=== PATIENT | male | born 1990 | race Two or more races ===

== ENCOUNTER 2019-12-29 07:14 | Day surgery (SDC) | payer MEDICAID ==
[2019-12-29] MEDS ORDERED: Dextrose 5%-Lactated Ringers 1,000 ML IV SCH (07:45)
[2019-12-29] MEDS ORDERED: Glycopyrrolate 0.2 MG/ML 2 ML SDV IVPUSH ONE (09:00)
[2019-12-29] MEDS ORDERED: Propofol 200 MG/20 ML SDV ONE (09:40)
[2019-12-29] MEDS ORDERED: Midazolam 1 MG/ML 2 ML SDV ONE (09:40)
[2019-12-29] MEDS ORDERED: fentaNYL 100 MCG/2 ML SDV ONE (09:40)
[2019-12-29 12:31] VITALS: BP 121/74; PULSE 62
--- NOTE | 2020-01-08 14:04 | OR ---
DATE OF PROCEDURE: 12/29/2019 SURGEON: Buster Ramirez MD PREOPERATIVE DIAGNOSIS: Gastroesophageal reflux disease. POSTOPERATIVE DIAGNOSES: Moderate-sized hiatal hernia with ulcerated gastroesophageal reflux disease. OPERATIVE PROCEDURE: Esophagogastroduodenoscopy with: 1. Biopsy of esophagogastric junction for histologic evaluation. 2. Biopsies of antrum for CLOtest. ANESTHESIA: IV sedation. INDICATIONS FOR PROCEDURE: This is a 29-year-old male who has been on proton pump inhibitors, and despite that, is having quite a bit in the way of epigastric and substernal pain. The plan is to proceed with an upper GI endoscopy with biopsies as indicated. Potential risks including bleeding and perforation were discussed, and the patient wishes to proceed. DETAILS OF PROCEDURE: The patient was taken to the operating room and placed in a left lateral decubitus position. IV sedation was administered after which the upper GI endoscope was passed orally through the length of the esophagus into the stomach with retroflexion view of the fundus, and thereafter, through the pyloric channel and into the proximal duodenum. Findings included normal hypopharynx, larynx, and upper esophageal sphincter. The scope was then passed through the esophageal body. The patient was noted to have some old blood present. The patient was noted to have a moderate-sized hiatal hernia measuring around 2 cm to 3 cm and actively ulcerated gastroesophageal reflux disease with some both old and fresh blood present. There was no stricturing or gross evidence of neoplastic change. The remainder of the gastric and duodenal exam was unremarkable. At this point, biopsies were obtained from the antrum to establish the patient's H. pylori status, and then multiple biopsies obtained from the esophagogastric junction. Minimal additional bleeding was noted from the biopsy sites. The procedure was then concluded. Postprocedure, we had an extensive discussion with the patient and his regarding management options. The patient has some shortness of breath intermittently, and this may be contributed to by the gastroesophageal reflux disease as well as obvious lack of adequate control with medical management. Particularly, at his young age, he would also like to possibly get off these medications long-term. The patient does not express any symptoms of dysphagia referable to distal esophagus, and the question of the reflux disease at this point clearly is not of any uncertainty, and given this, the plan will be to proceed with Michelle fundoplication this coming Wednesday. Potential risks including bleeding, infection, injury to underlying viscera, and problems with short-term or persistent dysphagia occasionally requiring revisions of the fundoplication as well as possible incomplete relief of symptoms were all reviewed, and the patient wishes to proceed. Surgery will be scheduled this coming Wednesday. Buster Ramirez MD /[id number]
== END 2019-12-29 12:45 | disposition home or self-care (01) ==
LOC: JP.SDS 07:14
PROVIDERS: ATTEND Surgery
DX: K29.50 Unspecified chronic gastritis without bleeding (principal); K21.9 Gastro-esophageal reflux disease without esophagitis; K44.9 Diaphragmatic hernia without obstruction or gangrene; B96.81 Helicobacter pylori [H. pylori] as the cause of diseases classified elsewhere; K25.9 Gastric ulcer, unspecified as acute or chronic, without hemorrhage or perforation; E66.9 Obesity, unspecified; J45.909 Unspecified asthma, uncomplicated; Z11.59 Encounter for screening for other viral diseases; Z68.30 Body mass index [BMI] 30.0-30.9, adult
CPT/HCPCS: 36415; 43239; 80053; 83735; 84100; 85027; 87081; 87635; 88305; 88342; J2250; J2704; J3010; J3490; J7121; U0002

== ENCOUNTER 2020-01-01 05:52 | Day surgery (SDC) | payer MEDICAID ==
[2020-01-01] MEDS ORDERED: Celecoxib 200 MG Cap PO ONE (06:00)
[2020-01-01] MEDS ORDERED: Acetaminophen 500 MG Tab PO ONE (06:00)
[2020-01-01] MEDS ORDERED: Scopolamine 1.5 MG Transdermal Patch TRDERM SCH (06:00)
[2020-01-01] MEDS ORDERED: Dextrose 5%-Lactated Ringers 1,000 ML IV SCH (06:30)
[2020-01-01] MEDS ORDERED: Albuterol/Ipratropium 3.0-0.5 MG/3 ML Neb Soln NEB ONE (07:00)
[2020-01-01] MEDS ORDERED: fentaNYL 250 MCG/5 ML SDV ONE ×2 (07:14→07:40)
[2020-01-01] MEDS ORDERED: ceFAZolin 2 GM in Premix Bag 1 BAG IV ONE (07:30)
[2020-01-01] MEDS ORDERED: Rocuronium 50 MG/5 ML Vial ONE (07:44)
[2020-01-01] MEDS ORDERED: Propofol 200 MG/20 ML SDV ONE (07:44)
[2020-01-01] MEDS ORDERED: Succinylcholine 200 MG/10 ML MDV ONE (07:44)
[2020-01-01] MEDS ORDERED: Ondansetron 4 MG/2 ML SDV ONE (07:44)
[2020-01-01] MEDS ORDERED: Neostigmine Methylsulfate 1 MG/ML 5 ML Syringe ONE (07:44)
[2020-01-01] MEDS ORDERED: Dexamethasone 4 MG/ML SDV ONE (07:44)
[2020-01-01] MEDS ORDERED: Glycopyrrolate 0.2 MG/ML 5 ML MDV ONE (07:44)
[2020-01-01] MEDS ORDERED: Ketamine 50 MG in Sodium Chloride 0.9% 49.5 ML IV SCH (07:45)
[2020-01-01] MEDS ORDERED: Ketamine 500 MG/5 ML MDV IV SCH (07:45)
[2020-01-01] MEDS ORDERED: fentaNYL 100 MCG/2 ML SDV ONE (08:28)
[2020-01-01] MEDS ORDERED: HYDROmorphone 1 MG/ML Syringe IV PRN (10:22)
[2020-01-01] MEDS ORDERED: Ondansetron 4 MG/2 ML SDV IVPUSH PRN (10:22)
[2020-01-01] MEDS ORDERED: Albuterol/Ipratropium 3.0-0.5 MG/3 ML Neb Soln INH PRN (10:23)
[2020-01-01] MEDS: Dextrose 5%-Lactated Ringers 1,000 ML IV SCH ×3 (10:45→22:42)
[2020-01-01] MEDS: HYDROmorphone 0.5 MG/0.5 ML Syringe IVPUSH PRN ×3 (10:46→22:41)
[2020-01-01] MEDS: Albuterol/Ipratropium 3.0-0.5 MG/3 ML Neb Soln INH SCH ×3 (10:56→21:46)
[2020-01-01] MEDS ORDERED: Pantoprazole 40 MG Vial IV SCH (12:00)
[2020-01-01] MEDS: VERIFY SCOP PATCH TOP SCH (12:56)
[2020-01-01] MEDS: Acetaminophen 500 MG Tab PO SCH ×2 (12:57→17:05)
[2020-01-01] MEDS: Metoclopramide 10 MG/2 ML SDV IV SCH ×2 (12:57→17:08)
[2020-01-01] MEDS: ceFAZolin 2 GM in Premix Bag 1 BAG IV SCH ×2 (14:35→21:46)
[2020-01-02] MEDS: Acetaminophen 500 MG Tab PO SCH ×2 (00:09→05:29)
[2020-01-02] MEDS: Metoclopramide 10 MG/2 ML SDV IV SCH ×2 (00:09→05:29)
[2020-01-02] MEDS: oxyCODONE 5 MG Tab PO PRN ×2 (03:22→10:22)
[2020-01-02] MEDS ORDERED: Ondansetron 4 MG Tab.DIS PO PRN (07:03)
[2020-01-02] MEDS ORDERED: Dextrose 5%-Lactated Ringers 1,000 ML IV SCH (07:15)
[2020-01-02 07:21] VITALS: BP 116/54
[2020-01-02] MEDS: Albuterol/Ipratropium 3.0-0.5 MG/3 ML Neb Soln INH SCH ×2 (07:31→10:44)
[2020-01-02 07:42] VITALS: PULSE 92
[2020-01-02] MEDS: VERIFY SCOP PATCH TOP SCH (11:22)
--- NOTE | 2020-01-02 15:30 | DISCH ---
ADMISSION DIAGNOSIS: Gastroesophageal reflux disease refractory to medical management. DISCHARGE DIAGNOSES: Laparoscopic Michelle fundoplication with repair of paraesophageal diaphragmatic hernia with mesh. POSTOPERATIVE DIAGNOSES: Paraesophageal diaphragmatic hernia associated with gastroesophageal reflux disease refractory to medical management. Date of surgery 01/01/2020. Surgeon: Buster Ramirez MD. HISTORY: Ramirez Dyer is a 29-year-old male with GERD refractory to medical management and paraesophageal diaphragmatic hernia. After preoperative evaluation, discussion of possible risks and possible complications, he wished to proceed with surgical procedure. HOSPITAL COURSE: Ramirez had his surgery on 01/01/2020. He had no operative complications. On postoperative day 1, his vital signs were stable. Pain was well managed. Activity was good. He received dietary instruction, and he was able to be discharged to home. PHYSICAL EXAMINATION: GENERAL: Ramirez is a 29-year-old male, alert and orientated. VITAL SIGNS: Height is 5 feet 10 inches. Weight is 219 pounds. BMI is 31.4. TPR at 0718 is 97.3, 61, 16. Blood pressure 116/54. HEENT: Negative. NECK: Supple. HEART: Regular rate and rhythm. LUNGS: Clear. ABDOMEN: Dressings dry and intact. Abdominal binder is on. EXTREMITIES: Without peripheral edema. DISPOSITION: Discharged to home. CONDITION: Stable and improving. FOLLOWUP: Followup appointment with Buster Ramirez MD on 01/10/2020 at 10:45 a.m., required postop appointment in clinic. HOME MEDICATIONS: 1. Oxycodone 5 mg oral q.6 hours p.r.n. pain, #28. 2. Tylenol Extra Strength 1000 mg oral q.6 hours p.r.n. pain. 3. Zofran ODT 4 mg q.4 hours p.r.n. nausea, #30. 4. Remove scopolamine patch on , 01/04/2020. He is to resume home medications: 1. Albuterol or ProAir inhaler 2 puffs every 4 hours p.r.n. shortness of breath. 2. Omeprazole 20 mg oral daily. DIET: Full liquid diet for 2 weeks. Drink 6 to 8 glasses of water a day. ACTIVITY: No lifting over 10 pounds for 2 weeks. OTHER ACTIVITY: Walk at least 6 times daily inside your home. Driving: Do not drive for 1 week and while on pain medication. Shower/Bathing: May shower. DISCHARGE INSTRUCTIONS: Notify provider if any fever, increased pain, nausea, or vomiting. Keep site clean and dry. Wear abdominal binder for 2 weeks, then as tolerated. Special Instruction: Use incentive spirometer 10 times every hour while awake.
--- NOTE | 2020-01-08 12:10 | OR ---
DATE OF PROCEDURE: 01/01/2020 SURGEON: Buster Ramirez MD PREOPERATIVE DIAGNOSIS: Gastric reflux disease refractory to medical management. POSTOPERATIVE DIAGNOSIS: Gastric reflux disease refractory to medical management. PROCEDURE: Laparoscopic Michelle fundoplication with repair of paraesophageal diaphragmatic hernia with mesh ([id number]). ANESTHESIA: General. BREAK OUT WORKER: Ana Toribio PA-C INDICATIONS FOR PROCEDURE: This is a 29-year-old male apparently recently with gastroesophageal reflux disease that is refractory to medical management. After preop evaluation and discussion both last week as well as this morning, plan will be to proceed with a Michelle fundoplication with a possible mesh augmentation of the crural repair. Potential risks of the procedure were reviewed once again this morning including bleeding, infection, injury to underlying viscera, problems with dysphagia, gas bloat syndrome, disorders of gastric emptying rate, as well as possible incomplete relief of reflux symptoms were all reviewed, and the patient wishes to proceed. DETAILS OF PROCEDURE: The patient was taken to the operating room after general endotracheal anesthesia was induced. He was converted to a lithotomy position and the abdomen prepped and draped 15 cm inferior and 5 cm left of the xiphoid process. A transverse incision was made and peritoneal cavity entered under direct vision with an Optiview trocar, inflated to 15 mmHg pressure with CO2. Laparoscope was reinserted. No underlying trocar insertion site injuries were seen. Following this, bilateral transversus abdominis plane blocks were placed and 4 additional trocars were placed across the upper and mid abdomen. The liver was then retracted anteriorly. The patient noted to have a moderate-sized paraesophageal diaphragmatic hernia with prolapse of perigastric fat and some gastric fundus in a plane anterior to the course of the esophagus. This was reduced and peritoneum overlying incised and reflected downward. The area between the right and left crura and esophagus was then dissected out with Harmonic scalpel along with blunt dissection, and following that, a retroesophageal dissection was completed and a peritoneal drain was placed around the EG junction. Additional soft tissue attachments of the distal esophagus were then divided with Harmonic scalpel such that at that point roughly 5 cm length of intraabdominal esophagus was evident. Posterior crural repair was accomplished with some 0 Ethibond sutures reinforced with PTFE pledgets. Given the patient's relatively well young age and fully thin musculature , a Phasix ST mesh was then cut in horseshoe-type pattern and placed over the crural repair and alongside the crura on each side, where it was fixed with some titanium-tacking screws. The omentum from the mid greater curvature was then divided with Harmonic scalpel. This dissection was then continued proximally to include the short gastrics as well as highest and posterior short gastric vessels. The gastric fundus attachments to the crura were then divided as well along with full mobilization of the gastric fundus. This was retrieved through the retroesophageal window and appeared to be easily mobile and passing through that area with minimal tension. The guidewire was then passed orally per Anesthesia and positioned across the esophagus into the stomach. Over this, a 54-Anguillan Savary dilator was placed. Following this, a 2-stitch fundoplication measuring roughly 1 to 1.5 cm length was accomplished with #0 Ethibond sutures reinforced with PTFE pledgets. Each at the underlying esophagus to help fix it in position. Following this, 2 sutures were placed between the diaphragm and the fundoplication, which was the same stitch and pledget combination to help fix it in position. Following this, dilator and wire were removed. The fundoplication was inspected and found to be adequately floppy. At that point, no further problems noted. Trocars were removed and peritoneal cavity deflated. Incisions were closed with some 4-0 Vicryl stitch and the patient was taken to the recovery room in satisfactory condition. Physician patient assistant, Ana Toribio, played an essential role in assisting in this case helping to position the patient, retract structures as needed, as well as suturing and cutting sutures when indicated. Her presence improved patient safety and decreased the operative time. Buster Ramirez MD /[id number]
== END 2020-01-02 12:03 | disposition home or self-care (01) ==
LOC: JP.SDS 05:52 → UNDOADMIN 05:52 → JP.SDSSCHI 05:52 → JP.MS 09:05 → JP.SDSSCHI 09:05 → EDSTATUS 09:45 → JP.SDS 01-02 12:03 → UNDODISIN 01-02 12:03
PROVIDERS: ATTEND Surgery
DX: K21.9 Gastro-esophageal reflux disease without esophagitis (principal); K44.9 Diaphragmatic hernia without obstruction or gangrene; J45.909 Unspecified asthma, uncomplicated; E66.9 Obesity, unspecified; R06.02 Shortness of breath; Z68.32 Body mass index [BMI] 32.0-32.9, adult; Z87.891 Personal history of nicotine dependence
CPT/HCPCS: 43282; 94640; A9270; C1713; C1781; C9113; J0171; J0330; J0690; J1100; J1170; J2405; J2704; J2710; J2765; J2795; J3010; J3490; J7050; J7121; J7620-GY